=== PATIENT | male | born 1950 | race Caucasian/White ===

== ENCOUNTER 2016-10-06 01:02 | Emergency (ER) | payer OTHER ==
--- NOTE | 2016-10-06 01:43 | EDPHY ---
H & P Stated Complaint: unable to urinate since 9pm, with BPH, on Flomax for 6 weeks Time Seen by Provider: 10/06/16 01:24 HPI/ROS: CHIEF COMPLAINT: Urinary retention HISTORY OF PRESENT ILLNESS: The patient is a 66-year-old man who comes to the emergency department complaining that he has not been able to urinate for the last 8 hours. He has a history of prostatic hypertrophy followed by [facility]. He is not supposed to take antihistamines. He took some antihistamines yesterday during a pulmonary function test and thinks that this is the problem. He has not had a fever. He has not had any hematuria or dysuria. No trauma. REVIEW OF SYSTEMS: Constitutional: denies: chills, fever, recent illness, recent injury EENTM: denies: blurred vision, double vision, nose congestion Respiratory: denies: cough, shortness of breath Cardiac: denies: chest pain, irregular heart rate, lightheadedness, palpitations Gastrointestinal/Abdominal: denies: abdominal pain, diarrhea, nausea, vomiting, blood streaked stools Genitourinary: See HPI Musculoskeletal: denies: joint pain, muscle pain Skin: denies: lesions, rash, jaundice, bruising Neurological: denies: headache, numbness, paresthesia, tingling, dizziness, weakness Hematologic/Lymphatic: denies: blood clots, easy bleeding, easy bruising Immunologic/allergic: denies: HIV/AIDS, transplant EXAM: GENERAL: Well-appearing, well-nourished and in no acute distress. HEAD: Atraumatic, normocephalic. EYES: Pupils equal round and reactive to light, extraocular movements intact, sclera anicteric, conjunctiva are normal. ENT: TMs normal, nares patent, oropharynx clear without exudates. Moist mucous membranes. NECK: Normal range of motion, supple without lymphadenopathy or JVD. LUNGS: Breath sounds clear to auscultation bilaterally and equal. No wheezes rales or rhonchi. HEART: Regular rate and rhythm without murmurs, rubs or gallops. ABDOMEN: Suprapubic bladder distention and tenderness BACK: No CVA tenderness, no spinal tenderness, step-offs or deformities EXTREMITIES: Normal range of motion, no pitting or edema. No clubbing or cyanosis. NEUROLOGICAL: Cranial nerves II through XII grossly intact. Normal speech, normal gait. 5/5 strength, normal movement in all extremities, normal sensation PSYCH: Normal mood, normal affect. SKIN: Warm, dry, normal turgor, no visible rashes or lesions. Exam Limitations: No limitations - Medical/Surgical History Hx Asthma: No Hx Chronic Respiratory Disease: No Hx Diabetes: No Hx Cardiac Disease: No Hx Renal Disease: No Hx Cirrhosis: No Hx Alcoholism: No Hx HIV/AIDS: No Hx Splenectomy or Spleen Trauma: No Other PMH: BPH. HTN, high cholesterol. PSH: knee sx 42 y.a/ - Family History Significant Family History: No pertinent family hx - Social History Smoking Status: Never smoked Alcohol Use: Sober Drug Use: None Constitutional: Initial Vital Signs Temperature (C) 36.8 C 10/06/16 01:03 Heart Rate 80 10/06/16 01:03 Respiratory Rate 20 10/06/16 01:03 Blood Pressure 168/97 H 10/06/16 01:03 O2 Sat (%) 94 10/06/16 01:03 O2 Delivery Mode Room Air Allergies/Adverse Reactions: No Known Allergies Allergy (Unverified 05/20/15 09:53) Home Medications: Medication Instructions Recorded Aspirin [Adult Low Dose Aspirin EC] 162 mg PO DAILY 05/20/15 Atorvastatin Calcium [Lipitor] 20 mg PO DAILY 05/20/15 Cholecalciferol (Vitamin D3) 7,000 unit PO DAILY 05/20/15 [Vitamin D3] Felodipine [Plendil 5 MG (*)] 10 mg PO DAILY 05/20/15 Fish Oil/Dha/Epa [Fish Oil 1,200 1 each PO DAILY 05/20/15 mg Fish Oil] Herbals/Supplements -Info Only 1 ea PO DAILY 05/20/15 Lisinopril/Hctz 20/12.5MG 1 tab PO DAILY 05/20/15 [Zestoretic/Prinzide 20/12.5MG (*)] Multivitamin with Minerals 1 each PO DAILY 05/20/15 [Multiple Vitamin] Sildenafil Citrate [Viagra 25 MG 25 mg PO PRN PRN 05/20/15 (*)] Zolpidem Tartrate [Ambien 10 mg] 10 mg PO HS PRN 05/20/15 Lisinopril/Hctz 20/12.5MG 1 ea PO DAILY #0 tab 05/21/15 [Zestoretic/Prinzide 20/12.5MG (*)] Amlodipine 06/01/15 Medical Decision Making ED Course/Re-evaluation: 2:20 a.m. the patient's Saleem was successfully placed. He has drained 1000 cc so far. He would like to have the Saleem removed when it is done. We discussed the fact that he may bounce-back any replaced. He also may follow up with his urologist this morning. 3:30 a.m. the patient is feeling much better. He has decided he would like to have the Saleem out and see if he can do without it. He understands that he may bounce-back in a few hours if he can still in a urinate. He will try to follow up with his urologist later today. He would like to wait for another hour to make sure reassess as much urine out as possible. Differential Diagnosis: Partial list of the Differential diagnosis considered include but were not limited to; BPH, bladder obstruction, medication reaction and although unlikely based on the history and physical exam, I also considered urinary tract infection, kidney stone. I discussed these differential diagnoses and the plan with the patient as well as the usual and expected course. The patient understands that the diagnosis is provisional and that in medicine we are not always correct and that further workup is often warranted. Usual and customary warnings were given. All of the patient's questions were answered. The patient was instructed to return to the emergency department should the symptoms at all worsen or return, otherwise to followup with the physician as we discussed. - Data Points Medications Given: Discontinued Medications Lidocaine (Uroject Lidocaine 2% Jelly) 20 ml UR EDNOW ONE Stop: 10/06/16 02:04 Last Admin: 10/06/16 02:06 Dose: 20 ml Departure - Departure Disposition: Home, Routine, Self-Care Clinical Impression: Urinary retention Condition: Fair Instructions: [facility] Patient Education, Infection Prevention, Urinary Retention in Men (ED) Referrals: LAYA YOUNG [Other] - As per Instructions [facility] ([facility],. [Edm Groups for Call Sched] - As per Instructions
[2016-10-06] MEDS ORDERED: LIDOCAINE 2% JELLY 20 ML (UROJECT) ONE (02:02)
[2016-10-06] MEDS ORDERED: LIDOCAINE 2% JELLY 20 ML (UROJECT) UR ONE (02:03)
[2016-10-06 04:45] VITALS: RESP 16; TEMP 98.1; O2SAT 97
[2016-10-06 04:46] VITALS: BP 167/76; PULSE 79
== END 2016-10-06 04:43 | disposition home or self-care (01) ==
PROC: 0T9B70Z Drainage of Bladder with Drainage Device, Via Natural or Artificial Opening (ICD-10-PCS; principal; 2016-10-06)
DX: R33.9 Retention of urine, unspecified (principal); I10 Essential (primary) hypertension; Z79.82 Long term (current) use of aspirin

== ENCOUNTER → 2016-10-11 | Outpatient (CLI) | payer OTHER | LOC: FIMAGING 16:37 | PROVIDERS: ATTEND Internal Medicine | DX: R06.09 Other forms of dyspnea (principal) ==

== ENCOUNTER 2016-10-26 20:51 | Emergency (ER) | payer OTHER ==
[2016-10-26 21:02] VITALS: RESP 16; TEMP 99.9; O2SAT 96
--- NOTE | 2016-10-26 21:59 | EDPHY ---
General - History Smoking Status: Never smoked Narrative: 10:33 I assessed and examined this patient. I agree that this patient likely has prostatitis and concur with the plan of treatment. (Servando Mensah) CHIEF COMPLAINT: Difficulty urinating, urinary retention HISTORY OF PRESENT ILLNESS: Patient complains of long history of BPH with difficulty urinating. He feels that he is having difficulty completely voiding, today worse than recently. Contact his primary care physician and urologist. He has been able to urinate today but only small, incomplete voice. Associated with dysuria and bladder spasm and pain. Occasional fever recently, but he was treated for UTI with Cipro improved. No trauma or injury. No other associated complaints or modifying factors. REVIEW OF SYSTEMS: Ten systems reviewed and are negative unless otherwise noted in the HPI PAST MEDICAL HISTORY: BPH, urinary retention PAST SURGICAL HISTORY: Reviewed SOCIAL HISTORY: Nonsmoker. FAMILY HISTORY: Noncontributory EXAMINATION General Appearance: Alert, no distress, pacing in the room Head: normocephalic, atraumatic Eyes: Pupils equal and round, no conjunctival pallor or injection ENT, Mouth: Mucous membranes moist Neck: Normal inspection, supple, non-tender Respiratory: No retractions or distress Cardiovascular: Regular rate Gastrointestinal: Abdomen is soft and nondistended. Mild tenderness in the suprapubic region. No tympany rigidity. No guarding. Skin: Warm and dry, no rash Extremities: Nontender, no pedal edema Psychiatric: Mood and affect normal DIFFERENTIAL DIAGNOSES: Including but not limited to urinary retention, BPH, GI, bladder calculus, prostatitis, bladder spasm MDM: 9:55 p.m. Sensation of urinary retention with dysuria. Bladder scan x3 has revealed a volume of 120 mL or less. He has been able to provide urine sample here. He does not want a Saleem catheter placed due to previous discomfort with this. 10:20 p.m. Case discussed with Dr. Mensah. He will evaluate the patient. Recommends pyridium and agrees with Valium. 10:35 p.m. Suspected prostatitis by Dr. Mensah. The patient did have a recent treatment of Cipro but only a short course. This is insufficient for prostatitis treatment. We will add additional 3 weeks to treat him for 30 days. This has been relayed to his primary care physician by Dr. Mensah. He will be discharged home stable condition with [place], Cipro, peridium and instructions to contact his urologist. He is comfortable this plan and discharged home stable condition. (Warren Romano) - Objective Vital Signs: Initial Vital Signs Temperature (C) 99.9 F 10/26/16 20:57 Heart Rate 93 10/26/16 20:57 Respiratory Rate 16 10/26/16 20:57 Blood Pressure 155/82 H 10/26/16 20:57 O2 Sat (%) 96 10/26/16 20:57 O2 Delivery Mode Room Air Allergies/Adverse Reactions: No Known Allergies Allergy (Unverified 05/20/15 09:53) Home Medications: Medication Instructions Recorded Aspirin [Adult Low Dose Aspirin EC] 162 mg PO DAILY 05/20/15 Atorvastatin Calcium [Lipitor] 20 mg PO DAILY 05/20/15 Cholecalciferol (Vitamin D3) 7,000 unit PO DAILY 05/20/15 [Vitamin D3] Felodipine [Plendil 5 MG (*)] 10 mg PO DAILY 05/20/15 Fish Oil/Dha/Epa [Fish Oil 1,200 1 each PO DAILY 05/20/15 mg Fish Oil] Herbals/Supplements -Info Only 1 ea PO DAILY 05/20/15 Lisinopril/Hctz 20/12.5MG 1 tab PO DAILY 05/20/15 [Zestoretic/Prinzide 20/12.5MG (*)] Multivitamin with Minerals 1 each PO DAILY 05/20/15 [Multiple Vitamin] Sildenafil Citrate [Viagra 25 MG 25 mg PO PRN PRN 05/20/15 (*)] Zolpidem Tartrate [Ambien 10 mg] 10 mg PO HS PRN 05/20/15 Lisinopril/Hctz 20/12.5MG 1 ea PO DAILY #0 tab 05/21/15 [Zestoretic/Prinzide 20/12.5MG (*)] Amlodipine 06/01/15 Ciprofloxacin [Cipro] 500 mg PO BID #21 tab 10/26/16 HYDROcodone/APAP 10/325 [[place] 1 - 2 each PO Q4-6PRN PRN #20 tab 10/26/16 10/325] Phenazopyridine HCl [Pyridium] 200 mg PO TID #6 tab 10/26/16 Departure - Departure Disposition: Home, Routine, Self-Care Clinical Impression: Urinary retention BPH (benign prostatic hyperplasia) Qualifiers: Lower urinary tract symptom presence: symptoms present Lower urinary tract symptom detail: urinary frequency Qualified Code(s): N40.1 - Benign prostatic hyperplasia with lower urinary tract symptoms; R35.0 - Frequency of micturition Prostatitis Qualifiers: Prostatitis type: acute Qualified Code(s): N41.0 - Acute prostatitis Condition: Good Instructions: Urinary Retention in Men (ED), Benign Prostatic Hypertrophy (ED) Additional Instructions: 1. Medications as discussed 2. Follow up with established urologist and primary care physician's Referrals: LAYA YOUNG [Other] - As per Instructions Matheus Zapata MD [Medical Doctor] - As per Instructions Prescriptions: Ciprofloxacin [Cipro] 500 mg PO BID #21 tab HYDROcodone/APAP 10/325 [[place] 10/325] 1 - 2 each PO Q4-6PRN PRN #20 tab PRN Reason: Pain, Moderate Phenazopyridine HCl [Pyridium] 200 mg PO TID #6 tab
[2016-10-26] MEDS ORDERED: PHENAZOPYRIDINE HCL 200 MG TAB PO ONE (22:19)
[2016-10-26] MEDS ORDERED: DIAZEPAM 5 MG TAB PO ONE (22:19)
[2016-10-26] MEDS ORDERED: HYDROCOD/APAP 5/325 PREPACK#6 BTL TAKEHOME ONE (22:35)
[2016-10-26 22:53] VITALS: BP 133/70; PULSE 90
== END 2016-10-26 22:53 | disposition home or self-care (01) ==
DX: N40.1 Benign prostatic hyperplasia with lower urinary tract symptoms (principal); R35.0 Frequency of micturition; N41.0 Acute prostatitis; Z79.82 Long term (current) use of aspirin

== ENCOUNTER 2016-10-28 05:33 | Emergency (ER) | payer OTHER ==
[2016-10-28 05:40] VITALS: BP 135/78; PULSE 86; RESP 16; TEMP 98.1; O2SAT 94
--- NOTE | 2016-10-28 05:57 | EDPHY ---
H & P Stated Complaint: urine retention Time Seen by Provider: 10/28/16 05:46 HPI/ROS: Chief Complaint: Urinary retention HPI: 66-year-old male seen in the emergency department 2 days ago with urinary symptoms. He was diagnosed with prostatitis and was placed on ciprofloxacin. Patient states he has been having difficulty urinating the last few weeks ever since having a lung function test with antihistamines stimulation. Patient is currently being followed by Dr. Ochoa Zapata, urology. This morning the patient has been unable to urinate for the past several hours. He is presenting this morning for evaluation. He has been taking his antibiotics. Denies any fevers or chills. No nausea or vomiting. Has had some abdominal discomfort. ROS: 10 point Review of Systems is negative except as noted in the HPI. PMH: Hypertension, prostatitis Social History: No smoking Family History: non-contributory Physical Exam: Gen: Awake, Alert, No Distress HEENT: Nose: no rhinorrhea Eyes: PERRLA, EOMI Mouth: Moist mucosa Neck: Supple, no JVD Chest: nontender, lungs clear to auscultation Heart: S1, S2 normal, no murmur Abd: Soft, distended, palpable enlarged urinary bladder with moderate tenderness Back: no CVA tenderness, no midline tenderness Ext: no edema, non-tender Skin: no rash Neuro: CN II-XII intact, Sensation grossly intact, Strength 5/5 in bilateral upper and lower extremities - Personal History Current Tetanus Diphtheria and Acellular Pertussis (TDAP): Yes - Medical/Surgical History Hx Asthma: No Hx Chronic Respiratory Disease: No Hx Diabetes: No Hx Cardiac Disease: No Hx Renal Disease: No Hx Cirrhosis: No Hx Alcoholism: No Hx HIV/AIDS: No Hx Splenectomy or Spleen Trauma: No Other PMH: PMHx: BPH, HTN, high cholesterol. PSH: knee sx 42 y.a - Social History Smoking Status: Never smoked Constitutional: Initial Vital Signs Temperature (C) 36.7 C 10/28/16 05:37 Heart Rate 86 10/28/16 05:37 Respiratory Rate 16 10/28/16 05:37 Blood Pressure 135/78 H 10/28/16 05:37 O2 Sat (%) 94 10/28/16 05:37 O2 Delivery Mode Room Air Allergies/Adverse Reactions: No Known Allergies Allergy (Unverified 05/20/15 09:53) Home Medications: Medication Instructions Recorded Aspirin [Adult Low Dose Aspirin EC] 162 mg PO DAILY 05/20/15 Atorvastatin Calcium [Lipitor] 20 mg PO DAILY 05/20/15 Cholecalciferol (Vitamin D3) 7,000 unit PO DAILY 05/20/15 [Vitamin D3] Felodipine [Plendil 5 MG (*)] 10 mg PO DAILY 05/20/15 Fish Oil/Dha/Epa [Fish Oil 1,200 1 each PO DAILY 05/20/15 mg Fish Oil] Herbals/Supplements -Info Only 1 ea PO DAILY 05/20/15 Lisinopril/Hctz 20/12.5MG 1 tab PO DAILY 05/20/15 [Zestoretic/Prinzide 20/12.5MG (*)] Multivitamin with Minerals 1 each PO DAILY 05/20/15 [Multiple Vitamin] Sildenafil Citrate [Viagra 25 MG 25 mg PO PRN PRN 05/20/15 (*)] Zolpidem Tartrate [Ambien 10 mg] 10 mg PO HS PRN 05/20/15 Lisinopril/Hctz 20/12.5MG 1 ea PO DAILY #0 tab 05/21/15 [Zestoretic/Prinzide 20/12.5MG (*)] Amlodipine 06/01/15 Ciprofloxacin [Cipro] 500 mg PO BID #21 tab 10/26/16 HYDROcodone/APAP 10/325 [[place] 1 - 2 each PO Q4-6PRN PRN #20 tab 10/26/16 10/325] Phenazopyridine HCl [Pyridium] 200 mg PO TID #6 tab 10/26/16 Medical Decision Making ED Course/Re-evaluation: I have discussed the options with the patient. I am recommending that he has a Saleem catheter placed and he left in place until he follows up with his urologist. He has an appointment with Dr. Zapata tomorrow afternoon. Mr. Manley would prefer to have a straight catheter here to empty his bladder and then have the catheter removed. I have advised him that I think that this will not be successful and then he will likely once again going to urinary retention , necessitating return to the emergency department ultimately for catheter placement. Patient understands that there is a possibility that he will go into urinary retention again. He would still prefer not to have a Saleem catheter placed at this time. He understands that he might have return to the emergency department to have a Saleem catheter placed. History catheter was introduced any had about a L of urine out. He tolerated this very well. He was discharged with precautions to return for symptoms of urinary retention. Otherwise she will follow up with Dr. Zapata at his appointment tomorrow. Departure - Departure Disposition: Home, Routine, Self-Care Clinical Impression: Acute retention of urine Condition: Good Instructions: Urinary Retention in Men (ED) Additional Instructions: Return to the emergency department immediately if you are unable to urinate. Follow up with your urologist, Dr. Zapata, tomorrow as scheduled. Referrals: LAYA YOUNG MD [Primary Care Provider] - As per Instructions Matheus Zapata MD [Medical Doctor] - As per Instructions
[2016-10-28] MEDS ORDERED: LIDOCAINE 2% JELLY 20 ML (UROJECT) ONE (05:58)
== END 2016-10-28 06:28 | disposition home or self-care (01) ==
PROC: 0T9B70Z Drainage of Bladder with Drainage Device, Via Natural or Artificial Opening (ICD-10-PCS; principal; 2016-10-28)
DX: R33.9 Retention of urine, unspecified (principal); I10 Essential (primary) hypertension; Z79.82 Long term (current) use of aspirin

== ENCOUNTER 2016-10-28 23:47 | Emergency (ER) | payer OTHER ==
[2016-10-29] MEDS ORDERED: fentaNYL 100 MCG/2 ML INJ IM ONE (00:33)
[2016-10-29] MEDS ORDERED: LIDOCAINE 2% JELLY 20 ML (UROJECT) ONE (00:52)
[2016-10-29] MEDS ORDERED: LIDOCAINE 2% JELLY 20 ML (UROJECT) UR ONE (00:54)
--- NOTE | 2016-10-29 01:20 | EDPHY ---
H & P Stated Complaint: URINARY RETENTION HPI/ROS: HPI The patient presents with urinary urgency and frequency with concern for retention. He was diagnosed with prostatitis on October 26 and started on a course of ciprofloxacin. He return to the ER yesterday for difficulty voiding , straight catheterization was performed with return of 800 mL of clear urine. He went home and was able to void approximately 800 mL says on his own. However tonight he feels that he has incomplete emptying.. REVIEW OF SYSTEMS Constitutional: No fever, no chills. Eyes: No discharge. ENT: No sore throat. Cardiovascular: No chest pain, no palpitations. Respiratory: No cough, no shortness of breath. Gastrointestinal: No abdominal pain, no vomiting. Genitourinary: No hematuria. Musculoskeletal: No back pain. Skin: No rashes. Neurological: No headache. PMHx: Recently diagnosed with prostatitis Soc Hx: mechanical system technician General Appearance: Alert, no distress Eyes: Pupils equal and round no pallor or injection ENT, Mouth: Mucous membranes moist Respiratory: Breathing comfortably Gastrointestinal: Abdomen is soft with mild distension Neurological: A&O, moves all extremities Skin: Warm and dry, no rashes Psychiatric: Patient is oriented X 3, there is no agitation Source: Patient Exam Limitations: No limitations - Personal History Current Tetanus/Diphtheria Vaccine: Yes - Medical/Surgical History Hx Asthma: No Hx Chronic Respiratory Disease: No Hx Diabetes: No Hx Cardiac Disease: No Hx Renal Disease: No Hx Cirrhosis: No Hx Alcoholism: No Hx HIV/AIDS: No Hx Splenectomy or Spleen Trauma: No Other PMH: PMHx: BPH, HTN, high cholesterol. PSH: knee sx 42 y.a - Social History Smoking Status: Never smoked Constitutional: Initial Vital Signs Temperature (C) 37.0 C 10/28/16 23:51 Heart Rate 85 10/28/16 23:51 Respiratory Rate 18 10/28/16 23:51 Blood Pressure 133/82 H 10/28/16 23:51 O2 Sat (%) 94 10/28/16 23:51 O2 Delivery Mode Room Air Allergies/Adverse Reactions: No Known Allergies Allergy (Unverified 05/20/15 09:53) Home Medications: Medication Instructions Recorded Aspirin [Adult Low Dose Aspirin EC] 162 mg PO DAILY 05/20/15 Atorvastatin Calcium [Lipitor] 20 mg PO DAILY 04/05/16 Cholecalciferol (Vitamin D3) 7,000 unit PO DAILY 05/20/15 [Vitamin D3] Felodipine [Plendil 5 MG (*)] 10 mg PO DAILY 05/20/15 Fish Oil/Dha/Epa [Fish Oil 1,200 1 each PO DAILY 05/20/15 mg Fish Oil] Herbals/Supplements -Info Only 1 ea PO DAILY 05/20/15 Lisinopril/Hctz 20/12.5MG 1 tab PO DAILY 05/20/15 [Zestoretic/Prinzide 20/12.5MG (*)] Multivitamin with Minerals 1 each PO DAILY 05/20/15 [Multiple Vitamin] Sildenafil Citrate [Viagra 25 MG 25 mg PO PRN PRN 05/20/15 (*)] Zolpidem Tartrate [Ambien 10 mg] 10 mg PO HS PRN 05/20/15 Lisinopril/Hctz 20/12.5MG 1 ea PO DAILY #0 tab 05/21/15 [Zestoretic/Prinzide 20/12.5MG (*)] Amlodipine 06/01/15 Ciprofloxacin [Cipro] 500 mg PO BID #21 tab 10/26/16 HYDROcodone/APAP 10/325 [[place] 1 - 2 each PO Q4-6PRN PRN #20 tab 10/26/16 10/325] Phenazopyridine HCl [Pyridium] 200 mg PO TID #6 tab 10/26/16 Medical Decision Making Differential Diagnosis: This is a 66-year-old man who presents with symptoms of urinary retention, straight catheterization performed less than 24 hours ago with return of 800 mL of urine, currently being treated for prostatitis ciprofloxacin. Also taking [place] for pain. I suspect urinary retention. In the emergency department, Saleem catheter was placed and drained several 100 cc of urine. The patient was discharged with catheter in place with Urology follow-up tomorrow. - Data Points Medications Given: Discontinued Medications Fentanyl (Sublimaze) 50 mcg IM EDNOW ONE Stop: 10/29/16 00:34 Last Admin: 10/29/16 00:53 Dose: 50 mcg Lidocaine (Uroject Lidocaine 2% Jelly) 20 ml UR EDNOW ONE Stop: 10/29/16 00:55 Last Admin: 10/29/16 00:55 Dose: 20 ml Departure - Departure Disposition: Home, Routine, Self-Care Clinical Impression: Urinary retention, Prostatitis, acute Condition: Good Instructions: Urinary Retention in Men (ED), Saleem Catheter Placement and Care (ED) Referrals: LAYA YOUNG MD [Primary Care Provider] - As per Instructions
[2016-10-29 02:53] VITALS: BP 132/90; PULSE 87; RESP 20; TEMP 98.2; O2SAT 95
== END 2016-10-29 02:45 | disposition home or self-care (01) ==
PROC: 0T9B70Z Drainage of Bladder with Drainage Device, Via Natural or Artificial Opening (ICD-10-PCS; principal; 2016-10-28)
DX: R33.9 Retention of urine, unspecified (principal); N41.0 Acute prostatitis; I10 Essential (primary) hypertension; Z79.82 Long term (current) use of aspirin
CPT/HCPCS: J3010

== ENCOUNTER 2016-12-10 11:20 | Day surgery (SDC) | payer OTHER ==
[2016-12-10] MEDS ORDERED: LIDOCAINE 1% 300 MG/30 ML SDV ONE (11:55)
--- NOTE | 2016-12-10 12:47 | PDPROPOC ---
Sedation Plan of Care Sedation Plan of Care: mental status noted, patient educated of risks, benefits , alternatives, patient can tolerate sedation ASA Classification: ASA 3 Planned drugs: other Mallampati Score: Class 3 Mallampati Reference Image: Patient passed 3-3-2 rule?: Yes
--- NOTE | 2016-12-10 13:52 | EPPROC ---
Electrophysiology Procedure Note: Procedure: LINQ implant Indication: Palpitation of unknown etiology Procedure: Parts prepared and draped. LA given. Incision placed. Subcutaneous tissue dissected. LINQ injected. Myriam placed. Dry sterile dressing placed. pt left CVC in stable condition Conclusion: Successful LINQ implant Patient Problems: Problems Problem Status Onset Rapid heart rate Acute Shortness of breath Acute
== END 2016-12-10 13:30 | disposition home or self-care (01) ==
LOC: FCATH 11:20
PROVIDERS: ATTEND Internal Medicine Cardiovascular Disease
PROC: 0JH602Z Insertion of Monitoring Device into Chest Subcutaneous Tissue and Fascia, Open Approach (ICD-10-PCS; principal; 2016-12-10)
DX: R00.2 Palpitations (principal); I25.10 Atherosclerotic heart disease of native coronary artery without angina pectoris; E78.5 Hyperlipidemia, unspecified; I10 Essential (primary) hypertension; Z82.49 Family history of ischemic heart disease and other diseases of the circulatory system; N40.0 Benign prostatic hyperplasia without lower urinary tract symptoms
CPT/HCPCS: C1764

== ENCOUNTER → 2017-02-21 | Outpatient (CLI) | payer BC, OTHER ==
[~2017-02-21] MED LIST: GADOBUTROL 10 ML VIAL IVP ONE
== END ==
LOC: FIMAGING 08:28
PROVIDERS: ATTEND Specialist
DX: R97.20 Elevated prostate specific antigen [PSA] (principal)
CPT/HCPCS: A9585

== ENCOUNTER 2017-07-07 11:43 | Outpatient (CLI) | payer OTHER ==
[2017-07-07] MEDS ORDERED: fentaNYL 100 MCG/2 ML INJ IVP PRN (12:11)
[2017-07-07] MEDS ORDERED: MIDAZOLAM 2 MG/2 ML VIAL IVP PRN (12:11)
[2017-07-07] MEDS ORDERED: ONDANSETRON 4 MG/2 ML VIAL IVP ONE (12:11)
[2017-07-07] MEDS ORDERED: MEPERIDINE 25 MG/ML SYR IVP PRN (12:11)
[2017-07-07] MEDS ORDERED: NALOXONE HCL 0.4 MG/ML INJ IVP PRN (12:11)
[2017-07-07] MEDS ORDERED: FLUMAZENIL 0.5 MG/5 ML MDV IVP PRN (12:11)
[2017-07-07] MEDS ORDERED: NS 1,000 ML IV SCH (12:15)
[2017-07-07] MEDS ORDERED: NALOXONE HCL 0.4 MG/ML INJ ONE (12:16)
[2017-07-07] MEDS ORDERED: fentaNYL 100 MCG/2 ML INJ ONE (12:16)
[2017-07-07] MEDS ORDERED: FLUMAZENIL 0.5 MG/5 ML MDV IVP ONE (12:16)
[2017-07-07] MEDS ORDERED: MIDAZOLAM 2 MG/2 ML VIAL ONE ×2 (12:17→14:01)
[2017-07-07] MEDS ORDERED: GADOBUTROL 10 ML VIAL IVP ONE (12:43)
[2017-07-07] MEDS ORDERED: ONDANSETRON 4 MG/2 ML VIAL IVP PRN (14:42)
[2017-07-07] MEDS ORDERED: ACETAMINOPHEN 325 MG TAB PO PRN (14:42)
[2017-07-07 16:02] VITALS: BP 136/73
== END 2017-07-07 16:19 | disposition home or self-care (01) ==
LOC: FIMAGING 11:43
PROVIDERS: ATTEND Specialist
DX: N40.0 Benign prostatic hyperplasia without lower urinary tract symptoms (principal)
CPT/HCPCS: A9585; J2250; J2310; J3010

== ENCOUNTER 2018-06-08 07:59 | Day surgery (SDC) | payer OTHER ==
[2018-06-08] MEDS ORDERED: LIDOCAINE 1% 300 MG/30 ML SDV SC ONE (08:06)
[2018-06-08] MEDS ORDERED: fentaNYL 100 MCG/2 ML INJ ONE (09:03)
[2018-06-08] MEDS ORDERED: MIDAZOLAM 2 MG/2 ML VIAL ONE (09:03)
--- NOTE | 2018-06-08 09:09 | PDPROPOC ---
Sedation Plan of Care Sedation Plan of Care: vital signs stable, mental status noted, patient educated of risks, benefits, alternatives, patient can tolerate sedation ASA Classification: ASA 2 Planned drugs: fentanyl, midazolam Mallampati Score: Class 2 Mallampati Reference Image: Patient passed 3-3-2 rule?: Yes
--- NOTE | 2018-06-08 09:09 | PDGENHP ---
History & Physical Chief Complaint: LINQ recorder needs explant History of Present Illness: 68 yo M with HTN. LINQ implanted about 2 years ago for palpitations. Per chart, no signficant arrhythmias have been recorded and patient now needs LINQ explant. Pertinent Past, Social, Family History: Reviewed Cardiorespiratory Assessment: stable for concious sedation
--- NOTE | 2018-06-08 10:10 | CPIP ---
[f rep st] INVASIVE CARDIAC PROCEDURE DATE OF PROCEDURE: 06/08/2018 PROCEDURE: Explant of [employer] LINQ recorder. INDICATIONS: No further need for long-term ambulatory cardiac monitoring. COMPLICATIONS: None. DESCRIPTION OF PROCEDURE: N.p.o. status was confirmed and informed consent was obtained. The patien t was prepped and draped in sterile fashion. Adequate conscious sedation was achieved with Versed an d fentanyl IV. He was on continuous telemetry and oxygen monitoring with frequent blood pressure mon itoring. 1% lidocaine was used for local anesthesia over the left parasternal region. A 2 cm incisi on was made over the medial end of the LINQ recorder. The device was removed and the incision was cl osed with 3 felicity and a sterile dressing. CONCLUSIONS: Successful LINQ explantation. Patient currently in stable condition. Follow up at [facility] for staple removal and wound check in approximately 1 week. /[id number]/MODL
== END 2018-06-08 10:28 | disposition home or self-care (01) ==
LOC: FCATH 07:59
PROVIDERS: ATTEND Internal Medicine Cardiovascular Disease
PROC: 0JPT02Z Removal of Monitoring Device from Trunk Subcutaneous Tissue and Fascia, Open Approach (ICD-10-PCS; principal; 2018-06-08)
DX: Z45.09 Encounter for adjustment and management of other cardiac device (principal); I10 Essential (primary) hypertension; E78.5 Hyperlipidemia, unspecified; N40.0 Benign prostatic hyperplasia without lower urinary tract symptoms
CPT/HCPCS: J2250; J3010

== ENCOUNTER → 2018-06-19 | Outpatient (CLI) | payer OTHER | LOC: FIMAGING 07:27 | PROVIDERS: ATTEND Specialist | DX: N40.0 Benign prostatic hyperplasia without lower urinary tract symptoms (principal); R97.20 Elevated prostate specific antigen [PSA] | CPT/HCPCS: A9585 ==